=== PATIENT | female | born 1970 | race Caucasian/White ===

== ENCOUNTER → 2024-05-28 17:40 | Outpatient (REF) | payer BC, SELFPAY | LOC: REG 17:40 | PROVIDERS: ATTENDING PHYSICIAN Physician Assistant Medical; REFERRING PHYSICIAN Nurse Practitioner Family | DX: M54.14 Radiculopathy, thoracic region (principal); M54.50 Low back pain, unspecified | CPT/HCPCS: 72072; 72110 ==

== ENCOUNTER → 2024-07-06 10:59 | Outpatient (REF) | payer BC, SELFPAY | LOC: PAVMRI 10:59 | PROVIDERS: ATTENDING PHYSICIAN Emergency Medicine | DX: R20.3 Hyperesthesia (principal); H53.9 Unspecified visual disturbance | CPT/HCPCS: 70553; A9575 ==

== ENCOUNTER → 2024-11-10 13:35 | Outpatient (REF) | payer BC, SELFPAY | LOC: WDC 13:35 | PROVIDERS: ATTENDING PHYSICIAN Emergency Medicine | DX: Z12.31 Encounter for screening mammogram for malignant neoplasm of breast (principal) | CPT/HCPCS: 77063; 77067 ==

== ENCOUNTER → 2024-11-25 11:52 | Outpatient (REF) | payer BC, SELFPAY | LOC: DHSLP 11:52 | PROVIDERS: ATTENDING PHYSICIAN Internal Medicine; FAMILY PHYSICIAN Emergency Medicine | DX: G47.30 Sleep apnea, unspecified (principal); R06.83 Snoring | CPT/HCPCS: 95800 ==

== ENCOUNTER 2025-08-26 06:18 | Day surgery (SDC) | payer BC, SELFPAY | END 2025-08-26 15:32 | disposition home or self-care (01) | LOC: GI 06:18 | PROVIDERS: ATTENDING PHYSICIAN Internal Medicine Gastroenterology | DX: Z12.11 Encounter for screening for malignant neoplasm of colon (principal); K57.30 Diverticulosis of large intestine without perforation or abscess without bleeding; K64.8 Other hemorrhoids; K62.1 Rectal polyp; K63.5 Polyp of colon; Z86.0100 Personal history of colon polyps, unspecified | CPT/HCPCS: 45380; 88305 ==